=== PATIENT | female | born 1985 | race Caucasian/White ===

== ENCOUNTER 2020-12-29 17:56 | Observation (INO) ==
[~2020-12-29 17:56] MED LIST: Ringers Solution, Lactated 1,000 ML IVC ONE; Ringers Solution, Lactated 2,000 ML ONE
[2020-12-29 17:57] LABS: Amorphous Sediment,Urine Few per hpf (None-Few); Bacteria,Urine Few per hpf (None-Few); Bilirubin,Urine Negative (Negative); Blood,Urine Negative (Negative); Clarity,Urine Turbid (Clear); Color,Urine Yellow (Yellow); Glucose,Urine (UA) Normal (Normal); Hyaline Casts,Urine Few per lpf (None Seen); Ketones,Urine Negative (Negative); Leukocyte Esterase,Urine Negative (Negative); Mucus,Urine Few per lpf (None-Few); Nitrite,Urine Negative (Negative); Protein,Urine Trace mg/dL (Neg-Trace); RBC,Urine 0-3 per hpf (0-3); Specific Gravity,Urine 1.023 (1.010-1.025); Squamous Epithelial Cell,Urine Few per hpf (None-Few); Urobilinogen,Urine Normal (Normal); WBC,Urine 0-3 per hpf (0-3)
== END 2020-12-29 18:50 | disposition home or self-care (01) ==
LOC: 1NENULAB
PROVIDERS: ADMIT Student in an Organized Health Care Education/Training Program; ATTEND Student in an Organized Health Care Education/Training Program

== ENCOUNTER 2021-01-14 07:54 | Inpatient (IN) ==
[2021-01-14] MEDS ORDERED: Ringers Solution, Lactated 1,000 ML IVC ONE (08:37)
[2021-01-14] MEDS ORDERED: Famotidine 20 MG/2 ML VIAL IVP ONE (08:37)
[2021-01-14] MEDS ORDERED: Metoclopramide 10 MG/2 ML VIAL IVP ONE (08:37)
[2021-01-14] MEDS ORDERED: CeFAZolin 2,000MG/50ML DUPLEX 2,000 MG/50 ML BAG IVPB ONE (08:37)
[2021-01-14] MEDS ORDERED: Azithromycin 500 MG in 0.9 % Sodium Chloride 250 ML IVPB PRN (08:37)
[2021-01-14] MEDS ORDERED: Oxytocin 20 units/ LR 1000 mL 20 UNIT/1,000 ML BAG IVC ONE ×2 (08:37→13:45)
[2021-01-14] MEDS ORDERED: Naloxone 0.4 MG/ML INJ IVP PRN ×3 (08:39→14:46)
[2021-01-14] MEDS ORDERED: Ondansetron 4 MG/2 ML VIAL IVP PRN ×3 (08:39→14:46)
[2021-01-14 09:01] LABS: Basophils # 0.1 K/mcL (0.0-0.2); Basophils % 0.5 %; Eosinophils # 0.1 K/mcL (0.0-0.6); Eosinophils % 1.3 %; Hematocrit 39.8 % (35.3-44.9); Hemoglobin 12.7 g/dL (11.5-15.4); Immature Granulocytes % 0.8 % (0-4); Lymphocytes # 1.8 K/mcL (0.6-4.6); Lymphocytes % 18.3 %; Mean Corpuscular HGB Conc 31.9 g/dL (31.6-35.5); Mean Corpuscular Hemoglobin 28.6 pg (28.0-33.3); Mean Corpuscular Volume 89.6 fL (83.0-100.0); Mean Platelet Volume 10.6 fL (9.4-12.4); Monocytes # 0.7 K/mcL (0.0-1.3); Monocytes % 7.2 %; Neutrophils # 6.9 K/mcL (1.6-8.9); Platelet Count 244 K/mcL (140-400); Red Blood Count 4.44 M/mcL (3.82-4.97); Red Cell Distribution Width 14.8 % (11.5-14.5); Segmented Neutrophils % 71.9 %; White Blood Count 9.6 K/mcL (4.3-11.1)
[2021-01-14] MEDS ORDERED: *HR* Phenylephrine 10 MG/ML VIAL ONE (09:28)
[2021-01-14] MEDS ORDERED: *HR* Morphine Sulfate/PF 10 MG/10 ML AMPUL ONE (09:28)
[2021-01-14] MEDS ORDERED: *HR* FentaNYL (PF) 100 MCG/2 ML VIAL ONE (09:28)
[2021-01-14 09:39] LABS: Amphetamine Screen,Urine Negative ng/mL (Cutoff=1000); Barbiturate Screen,Urine Negative ng/mL (Cutoff=200); Benzodiazepines Screen,Urine Negative ng/mL (Cutoff=200); Cannabinoid Screen,Urine Negative ng/mL (Cutoff = 50); Cocaine Screen,Urine Negative ng/mL (Cutoff= 300); Opiate Screen,Urine Negative ng/mL (Cutoff=300); Phencyclidine Screen,Urine Negative ng/mL (Cutoff=25)
[2021-01-14] MEDS ORDERED: Ringers Solution, Lactated 1,000 ML ONE (10:22)
[2021-01-14] MEDS ORDERED: *HR* Meperidine 25 MG/ML SYRINGE IVP PRN (11:36)
[2021-01-14] MEDS ORDERED: Promethazine 6.25 MG in Water for inj. (sterile) 20 ML IVPB PRN (11:36)
[2021-01-14] MEDS ORDERED: *HR* FentaNYL (PF) 100 MCG/2 ML VIAL IVP PRN (11:36)
[2021-01-14] MEDS ORDERED: Acetaminophen IV 1,000 MG/100 ML BAG IVPB ONE (11:58)
[2021-01-14] MEDS ORDERED: Simethicone 80 MG TAB.CHEW PO PRN (14:46)
[2021-01-14] MEDS ORDERED: Oxytocin 20 units/ LR 1000 mL 20 UNIT/1,000 ML BAG IVC SCH ×2 (14:46)
[2021-01-14] MEDS ORDERED: Metoclopramide 10 MG/2 ML VIAL IVP PRN (14:46)
[2021-01-14] MEDS: Ibuprofen 600 MG TABLET PO SCH ×2 (17:12→23:29)
[2021-01-14] MEDS: *HR* OxyCODONE Immed Rel 5 MG TABLET PO PRN (21:03)
[2021-01-14] MEDS: Acetaminophen 325 MG TABLET PO PRN (21:04)
[2021-01-15] MEDS: *HR* OxyCODONE Immed Rel 5 MG TABLET PO PRN ×5 (01:24→19:46)
[2021-01-15] MEDS: Acetaminophen 325 MG TABLET PO PRN ×3 (03:08→19:45)
[2021-01-15 06:13] LABS: Basophils # 0.1 K/mcL (0.0-0.2); Basophils % 0.6 %; Eosinophils # 0.2 K/mcL (0.0-0.6); Eosinophils % 2.1 %; Immature Granulocytes % 0.7 % (0-4); Lymphocytes # 1.9 K/mcL (0.6-4.6); Lymphocytes % 20.9 %; Mean Corpuscular HGB Conc 33.3 g/dL (31.6-35.5); Mean Corpuscular Hemoglobin 29.9 pg (28.0-33.3); Mean Corpuscular Volume 89.7 fL (83.0-100.0); Mean Platelet Volume 10.7 fL (9.4-12.4); Monocytes # 0.6 K/mcL (0.0-1.3); Monocytes % 6.6 %; Neutrophils # 6.2 K/mcL (1.6-8.9); Platelet Count 194 K/mcL (140-400); Red Blood Count 3.68 M/mcL (3.82-4.97); Red Cell Distribution Width 14.6 % (11.5-14.5); Segmented Neutrophils % 69.1 %; White Blood Count 8.9 K/mcL (4.3-11.1)
[2021-01-15] MEDS: Ibuprofen 600 MG TABLET PO SCH ×4 (06:27→23:48)
[2021-01-15 07:44] VITALS: O2SAT 96
[2021-01-15] MEDS: Prenatal Vit/FA 1 EACH TABLET PO SCH (08:23)
[2021-01-15] MEDS ORDERED: Benzocaine/Menthol 56 GM AEROSOL SPRAY TP PRN (16:26)
[2021-01-16] MEDS: Acetaminophen 325 MG TABLET PO PRN (04:20)
[2021-01-16] MEDS: *HR* OxyCODONE Immed Rel 5 MG TABLET PO PRN ×3 (04:20→12:57)
[2021-01-16] MEDS: Ibuprofen 600 MG TABLET PO SCH (06:20)
[2021-01-16] MEDS: Prenatal Vit/FA 1 EACH TABLET PO SCH (07:40)
[2021-01-16 07:44] VITALS: BP 122/77; PULSE 60; TEMP 97.7
== END 2021-01-16 12:40 | disposition home or self-care (01) | DRG 540 ==
LOC: SAMDAY 07:54 → 1NENULAB 08:25 → EDSTATUS 10:00 → 1NENUOBS 16:23
PROVIDERS: ADMIT Obstetrics & Gynecology; ATTEND Obstetrics & Gynecology